=== PATIENT | male | born 1965 | race Two or more races ===

== ENCOUNTER 2018-06-06 08:55 | Outpatient (CLI) | payer OTHER | END 2018-06-06 09:15 | disposition home or self-care (01) | LOC: RX STUDY 08:55 | DX: R13.19 Other dysphagia (principal); R13.12 Dysphagia, oropharyngeal phase; R13.14 Dysphagia, pharyngoesophageal phase ==

== ENCOUNTER 2021-09-08 06:45 | Day surgery (SDC) | payer OTHER ==
[~2021-09-08] VITALS: Ht 177.8 cm; Wt 86.2 kg
[~2021-09-08 06:45] MED LIST: HYDROCHLOROTH12.5 MG PO; LOTREL 5-10 MG1 CAP PO
[2021-09-08] MEDS ORDERED: ACETAMINOPHEN-1 EAC2 PO (17:30)
== END 2021-09-08 22:00 | disposition home or self-care (01) ==
LOC: CIR.AMB 06:45
PROVIDERS: ATTEND Surgery
DX: N52.9 Male erectile dysfunction, unspecified (principal); N48.6 Induration penis plastica; Z20.822 Contact with and (suspected) exposure to COVID-19; I10 Essential (primary) hypertension; Z99.89 Dependence on other enabling machines and devices; G47.33 Obstructive sleep apnea (adult) (pediatric)
CPT/HCPCS: 54405; C1813